=== PATIENT | female | born 1995 | race Caucasian/White ===

== ENCOUNTER 2018-09-16 21:11 | Emergency (ER) | payer OTHER ==
[~2018-09-16] VITALS: Ht 170.2 cm; Wt 79.8 kg
[2018-09-16 21:19] VITALS: Ht 170.2 cm; Wt 79.8 kg
[2018-09-16 23:32] VITALS: BP 129/76
== END 2018-09-16 23:32 | disposition home or self-care (01) ==
LOC: ED 21:11
DX: F98.8 Other specified behavioral and emotional disorders with onset usually occurring in childhood and adolescence (principal); F32.9 Major depressive disorder, single episode, unspecified; Z76.0 Encounter for issue of repeat prescription